=== PATIENT | female | born 1955 | race Caucasian/White ===

== ENCOUNTER 2022-06-02 01:09 | Emergency (ER) | payer MEDICARE, OTHER ==
[2022-06-02 01:54] LABS: HEMATOCRIT 44.8 % (37.0-47.0); HEMOGLOBIN 13.9 g/dl (12.0-16.0); IMMATURE GRANULOCYTES 0.2 % (0.0-5.0); MEAN CELL VOLUME 100.4 fL CALC (80.0-100.0); MEAN CORPUSCULAR HGB 31.2 pG CALC (26.0-32.0); NEUT# 7.6 thou/uL (2.00-7.15); RED BLOOD COUNT 4.46 mill/uL (4.20-5.60); RED CELL DISTRI WIDTH 13.9 % (11.5-15.5)
[2022-06-02 02:04] LABS: ALBUMIN 3.7 g/dL (3.2-5.0); BILIRUBIN, TOTAL 1.1 mg/dL (0.0-1.4); CREATININE 1.4 mg/dL (0.5-1.0); POTASSIUM 4.1 mmol/l (3.5-5.1); TOTAL PROTEIN 7.5 g/dL (6.3-8.2)
[2022-06-02 03:14] LABS: ACT PARTIAL THROMBO TIME 27.5 SECONDS (20.0-32.5); INTERNATIONAL NORMALIZED RATIO 1.2 RATIO (0.7-1.3)
[2022-06-02] MEDS ORDERED: ASPIRIN81 MG PO (03:51)
[2022-06-02] MEDS ORDERED: D3 50005000 UNIT (03:52)
[2022-06-02] MEDS ORDERED: JARDIANCE10 MG PO (03:53)
[2022-06-02] MEDS ORDERED: METOPROLOL SUCC50 MG PO (03:55)
[2022-06-02] MEDS ORDERED: FUROSEMIDE20 MG PO (03:56)
[2022-06-02] MEDS ORDERED: SPIRONOLACTONE25 MG PO (03:56)
[2022-06-02] MEDS ORDERED: ENTRESTO 24-261 TAB PO (03:58)
[2022-06-02] MEDS ORDERED: LEVOTHYROXIN150 MC1 PO (04:00)
[2022-06-02] MEDS ORDERED: KLOR-CON M2020 MEQ PO (04:02)
[2022-06-02] MEDS ORDERED: TORSEMIDE20 M1 PO (04:03)
[2022-06-02 09:53] VITALS: BP 119/55
== END 2022-06-02 09:53 | disposition short-term general hospital (02) ==
LOC: ED 01:09
PROVIDERS: Emergency Medicine
DX: I48.91 Unspecified atrial fibrillation (principal); R79.89 Other specified abnormal findings of blood chemistry; Z20.822 Contact with and (suspected) exposure to COVID-19

== ENCOUNTER 2024-04-20 15:49 | Inpatient (IN) | payer OTHER, MEDICARE ==
[~2024-04-20] VITALS: Ht 152.4 cm; Wt 96.5 kg
[2024-04-20] VITALS (76 sets, daily range): BP systolic 58–148; BP diastolic 24–93
[~2024-04-20 15:49] MED LIST: ASPIRIN81 MG PO; D3 50005000 UNIT; ENTRESTO 24-261 TAB PO; FUROSEMIDE20 MG PO; JARDIANCE10 MG PO; KLOR-CON M2020 MEQ PO; LEVOTHYROXIN150 MC1 PO; METOPROLOL SUCC50 MG PO; SPIRONOLACTONE25 MG PO; TORSEMIDE20 M1 PO
[2024-04-20] MEDS ORDERED: DILTIAZEM HCL 125 MG in SODIUM CHLORIDE 0.9% 100 ML IV ONE (16:15)
[2024-04-20] MEDS ORDERED: SODIUM CHLORIDE 0.9% 500 ML IV ONE ×2 (16:15→18:45)
[2024-04-20] MEDS ORDERED: DILTIAZEM HCL 25 MG/5 ML SDV IV ONE (16:15)
[2024-04-20] MEDS ORDERED: SODIUM CHLORIDE 0.9% 1,000 ML IV ONE (16:25)
[2024-04-20 16:33] LABS: BASO% 0.2 % (0-3); EOS% 0.6 % (0-8); HEMATOCRIT 44.9 % (37.0-47.0); HEMOGLOBIN 14.4 g/dl (12.0-16.0); IMMATURE GRANULOCYTES 0.1 % (0.0-5.0); LYMPH% 20.4 % (15-41); MEAN CELL VOLUME 90.5 fL CALC (80.0-100.0); MEAN CORPUSCULAR HGB CONC 32.1 g/dL CAL (32.0-36.0); NEUT# 6.03 thou/uL (2.00-7.15); NEUT% 73.7 % (42-76); RED BLOOD COUNT 4.96 mill/uL (4.20-5.60); RED CELL DISTRI WIDTH 14.4 % (11.5-15.5)
[2024-04-20 16:46] LABS: INTERNATIONAL NORMALIZED RATIO 1.1 RATIO (0.7-1.3)
[2024-04-20 16:47] LABS: PROTHROMBIN TIME 10.7 SECONDS (9.0-12.5)
[2024-04-20 16:48] LABS: BILIRUBIN, TOTAL 0.9 mg/dL (0.02-1.3); CREATININE 1.4 mg/dL (0.5-1.0); MAGNESIUM 2.2 mg/dL (1.6-2.3); POTASSIUM 4.4 mmol/l (3.5-5.1)
[2024-04-20 16:49] LABS: ALBUMIN 4.7 g/dL (3.2-5.0); TOTAL PROTEIN 9.1 g/dL (6.3-8.2)
[2024-04-20] MEDS ORDERED: ELIQUIS5 MG PO (20:16)
[2024-04-20] MEDS ORDERED: MAGNESIUM HYDROXIDE 30 ML UDC PO PRN (20:25)
[2024-04-20] MEDS ORDERED: ACETAMINOPHEN 325 MG/TAB PO PRN (20:25)
[2024-04-20] MEDS ORDERED: SODIUM CHLORIDE 0.9% 1,000 ML IV PRN (20:25)
[2024-04-20] MEDS ORDERED: METOPROLOL TARTRATE 25 MG/TAB PO SCH (21:00)
[2024-04-20] MEDS ORDERED: APIXABAN BASE 2.5 MG/TAB TAB PO SCH (21:00)
[2024-04-21] VITALS (30 sets, daily range): BP systolic 81–134; BP diastolic 40–75
[2024-04-21] MEDS ORDERED: LEVOTHYROXINE SODIUM 75 MCG/TAB PO SCH (06:00)
[2024-04-21 06:11] LABS: BASO% 0.4 % (0-3); EOS% 1.8 % (0-8); HEMATOCRIT 40.7 % (37.0-47.0); HEMOGLOBIN 12.9 g/dl (12.0-16.0); LYMPH% 25.8 % (15-41); MEAN CELL VOLUME 92.1 fL CALC (80.0-100.0); MEAN CORPUSCULAR HGB 29.2 pG CALC (26.0-32.0); MEAN CORPUSCULAR HGB CONC 31.7 g/dL CAL (32.0-36.0); MONO% 7.3 % (2-13); NEUT# 3.29 thou/uL (2.00-7.15); NEUT% 64.7 % (42-76); RED BLOOD COUNT 4.42 mill/uL (4.20-5.60); RED CELL DISTRI WIDTH 14.3 % (11.5-15.5)
[2024-04-21 06:25] LABS: ALBUMIN 3.8 g/dL (3.2-5.0); BILIRUBIN, TOTAL 0.7 mg/dL (0.02-1.3); CREATININE 0.9 mg/dL (0.5-1.0); MAGNESIUM 2.2 mg/dL (1.6-2.3); POTASSIUM 4.2 mmol/l (3.5-5.1)
[2024-04-21 06:27] LABS: TOTAL PROTEIN 7.1 g/dL (6.3-8.2)
[2024-04-21 06:46] LABS: CHOLESTEROL HDL RATIO 5.6 (<4.4 (CALC))
[2024-04-21] MEDS ORDERED: METOPROLOL TARTRATE 5 MG/5 ML VIAL IV SCH (08:30)
[2024-04-21] MEDS ORDERED: DILTIAZEM HCL 125 MG in SODIUM CHLORIDE 0.9% 100 ML IV PRN (08:40)
[2024-04-21] MEDS ORDERED: SODIUM CHLORIDE 0.9% 500 ML IV PRN (08:40)
[2024-04-21] MEDS ORDERED: METOPROLOL SUCCINATE 25 MG/TAB-TOPROL XL PO SCH (09:00)
[2024-04-21] MEDS ORDERED: DEXTROSE 250 ML IV PRN (12:00)
[2024-04-21] MEDS ORDERED: INSULIN LISPRO 100 UNITS/ML ML SC SCH (17:00)
[2024-04-21 17:15] LABS: URINE BILIRUBIN - DIPSTICK Negative (NEGATIVE); URINE BLOOD DIPSTICK Trace-intact (NEGATIVE); URINE GLUCOSE - DIPSTICK >=1000 mg/dL (NEGATIVE); URINE KETONE Trace mg/dL (NEGATIVE); URINE NITRITE - DIPSTICK Negative (Negative); URINE PH 5.5 (4.5-8.0); URINE PROTEIN - DIPSTICK Negative (NEG-TRACE); URINE SPECIFIC GRAVITY 1.015; URINE UROBILINOGEN - DIPSTICK 0.2 E.U./dL (0.2)
[2024-04-21 17:16] LABS: URINE COLOR Yellow
[2024-04-21 17:17] LABS: URINE LEUK ESTERASE Small (NEGATIVE)
[2024-04-21 17:22] LABS: URINE SQUAMOUS EPITHELIAL CELL FEW EPI/hpf (0-FEW)
[2024-04-21] MEDS ORDERED: CLARIFY DOSE PO PRN (22:25)
[2024-04-22] VITALS (22 sets, daily range): BP systolic 107–146; BP diastolic 46–83
[2024-04-22 05:30] LABS: BASO% 0.3 % (0-3); EOS% 2.4 % (0-8); HEMATOCRIT 36.3 % (37.0-47.0); HEMOGLOBIN 11.7 g/dl (12.0-16.0); LYMPH% 29.2 % (15-41); MEAN CELL VOLUME 92.8 fL CALC (80.0-100.0); MEAN CORPUSCULAR HGB 29.9 pG CALC (26.0-32.0); MEAN CORPUSCULAR HGB CONC 32.2 g/dL CAL (32.0-36.0); MONO% 8.6 % (2-13); NEUT# 2.22 thou/uL (2.00-7.15); NEUT% 59.5 % (42-76); RED BLOOD COUNT 3.91 mill/uL (4.20-5.60); RED CELL DISTRI WIDTH 14.4 % (11.5-15.5)
[2024-04-22 05:51] LABS: ALBUMIN 3.6 g/dL (3.2-5.0); BILIRUBIN, TOTAL 0.5 mg/dL (0.02-1.3); CREATININE 0.9 mg/dL (0.5-1.0); MAGNESIUM 2.1 mg/dL (1.6-2.3); POTASSIUM 4.6 mmol/l (3.5-5.1); TOTAL PROTEIN 6.6 g/dL (6.3-8.2)
[2024-04-22] MEDS ORDERED: METOPROLOL SUCCINATE 25 MG/TAB-TOPROL XL PO SCH (09:00)
[2024-04-22] MEDS ORDERED: METOPROLOL TARTRATE 25 MG/TAB PO SCH (09:00)
[2024-04-22] MEDS ORDERED: DIGOXIN 0.25 MG/TAB PO SCH (14:15)
[2024-04-22] MEDS ORDERED: METOPROLOL SUCCINATE 50 MG/TAB PO SCH (17:15)
[2024-04-22] MEDS ORDERED: METOPROLOL TARTRATE 5 MG/5 ML VIAL IV PRN (17:15)
[2024-04-22] MEDS ORDERED: DEXTROMETHORPHAN-Guaifenesin 20-200 MG/10 ML UDC PO PRN (21:55)
[2024-04-23] VITALS (31 sets, daily range): BP systolic 109–147; BP diastolic 51–93
[2024-04-23 05:47] LABS: BASO% 0.6 % (0-3); EOS% 3.3 % (0-8); HEMOGLOBIN 12.1 g/dl (12.0-16.0); IMMATURE GRANULOCYTES 0.6 % (0.0-5.0); LYMPH% 27.5 % (15-41); MEAN CELL VOLUME 91.6 fL CALC (80.0-100.0); MEAN CORPUSCULAR HGB 29.2 pG CALC (26.0-32.0); MEAN CORPUSCULAR HGB CONC 31.8 g/dL CAL (32.0-36.0); MONO% 11.2 % (2-13); NEUT# 1.88 thou/uL (2.00-7.15); NEUT% 56.8 % (42-76); RED BLOOD COUNT 4.15 mill/uL (4.20-5.60); RED CELL DISTRI WIDTH 14.3 % (11.5-15.5)
[2024-04-23 06:08] LABS: ALBUMIN 3.7 g/dL (3.2-5.0); BILIRUBIN, TOTAL 0.6 mg/dL (0.02-1.3); CREATININE 0.8 mg/dL (0.5-1.0); MAGNESIUM 2.1 mg/dL (1.6-2.3); TOTAL PROTEIN 6.9 g/dL (6.3-8.2)
[2024-04-23] MEDS ORDERED: METOPROLOL SUCCINATE 50 MG/TAB PO SCH (09:00)
[2024-04-23] MEDS ORDERED: ALPRAZolam 0.25 MG PO PRN (11:50)
[2024-04-23] MEDS ORDERED: DIGOXIN 0.25 MG/TAB PO SCH (12:00)
[2024-04-24] VITALS (14 sets, daily range): BP systolic 113–147; BP diastolic 56–91
[2024-04-24 05:42] LABS: ALBUMIN 3.8 g/dL (3.2-5.0); BILIRUBIN, TOTAL 0.6 mg/dL (0.02-1.3); CREATININE 0.7 mg/dL (0.5-1.0); TOTAL PROTEIN 7.1 g/dL (6.3-8.2)
[2024-04-24 05:43] LABS: BASO% 0.4 % (0-3); EOS% 1.9 % (0-8); HEMATOCRIT 37.6 % (37.0-47.0); HEMOGLOBIN 12.2 g/dl (12.0-16.0); IMMATURE GRANULOCYTES 0.2 % (0.0-5.0); LYMPH% 17.5 % (15-41); MEAN CELL VOLUME 91.9 fL CALC (80.0-100.0); MEAN CORPUSCULAR HGB 29.8 pG CALC (26.0-32.0); MEAN CORPUSCULAR HGB CONC 32.4 g/dL CAL (32.0-36.0); MONO% 8.2 % (2-13); NEUT# 3.78 thou/uL (2.00-7.15); NEUT% 71.8 % (42-76); RED BLOOD COUNT 4.09 mill/uL (4.20-5.60); RED CELL DISTRI WIDTH 14.2 % (11.5-15.5)
[2024-04-24] MEDS ORDERED: SPIRONOLACTONE 25 MG/TAB PO SCH (09:00)
[2024-04-24] MEDS ORDERED: dilTIAZem HCl EXTENDED RELEASE 120 MG CAP PO SCH (09:00)
[2024-04-24] MEDS ORDERED: DIGOXIN 0.25 MG/TAB PO SCH (09:00)
[2024-04-24] MEDS ORDERED: ENTRESTO 24-261 TAB PO (13:14)
[2024-04-24] MEDS ORDERED: JARDIANCE25 MG PO (13:14)
[2024-04-24] MEDS ORDERED: SPIRONOLACTONE25 MG PO (13:14)
[2024-04-24] MEDS ORDERED: TOPROL XL100 MG PO (13:14)
[2024-04-24] MEDS ORDERED: LEVOTHYROXIN150 MC1 PO (13:14)
[2024-04-24] MEDS ORDERED: ELIQUIS5 MG PO (13:14)
[2024-04-24] MEDS ORDERED: DIGOX250 MCG PO (13:16)
== END 2024-04-24 16:00 | disposition home or self-care (01) | DRG 309 ==
LOC: ED 15:49 → ED-I 19:01 → ED 19:31 → ICU 19:31
PROVIDERS: Nurse Practitioner; ADMIT Student in an Organized Health Care Education/Training Program; ATTEND Student in an Organized Health Care Education/Training Program
DX: I48.19 Other persistent atrial fibrillation (principal); I13.0 Hypertensive heart and chronic kidney disease with heart failure and stage 1 through stage 4 chronic kidney disease, or unspecified chronic kidney disease; I50.32 Chronic diastolic (congestive) heart failure; N17.9 Acute kidney failure, unspecified; I48.92 Unspecified atrial flutter; E11.22 Type 2 diabetes mellitus with diabetic chronic kidney disease; N18.32 Chronic kidney disease, stage 3b; E11.65 Type 2 diabetes mellitus with hyperglycemia; I95.2 Hypotension due to drugs; T46.1X5A Adverse effect of calcium-channel blockers, initial encounter; I25.10 Atherosclerotic heart disease of native coronary artery without angina pectoris; E03.9 Hypothyroidism, unspecified; E66.9 Obesity, unspecified; Z68.32 Body mass index [BMI] 32.0-32.9, adult; Z83.3 Family history of diabetes mellitus; Z79.01 Long term (current) use of anticoagulants